=== PATIENT | female | born 1935 | race Caucasian/White ===

== ENCOUNTER 2016-08-31 02:13 | Emergency (ER) | payer MEDICARE, MEDICAID ==
[~2016-08-31 02:13] MED LIST: ASA CHILDREN'S81 MG PO; COLACE-DPS100 MG PO; DULCOLAX-DPS5 MG PO; HYDROCODON-ACE1 EAC2 PO; LEVEMIR100 UNIT/1 SQ; LIPITOR DPS20 MG PO; MIRALAX510 GM PO; NAPROXEN375 MG PO; NEURONTIN800 MG PO; NOVOLIN N100 UNIT/1 SQ; NOVOLIN R,100 UNITS/ SQ; SYNTHROID88 MCG PO; VALIUM-DPS5 MG PO; ZESTORETIC 20/21 TAB PO
--- NOTE | 2016-09-05 07:37 | ER ---
ADMIT: 08/31/2016 RM/LOC: ER [facility] MR#: [id number] [address] [facility] [address] [place], [place] [address] BHAVYA WILLIAM N [address] [place] [address] Emergency Room Report SEX: F AGE: 80 : 1935 DATE: 08/31/2016 TIME: 212 Please refer to my T-sheet for complete H and P. HISTORY OF PRESENT ILLNESS: Briefly, the patient is a 80-year-old, comes in with multiple complaints. Aches all over. Not feeling well. Has not been doing well. She states she has diabetes, neuropathy, and chronic pain. She is on a pain pump. She has been seeing Dr. Hilario and Dr. Payan, just not improving. Was at home, says that she lives over at [facility], where she does not have her dog, she has been lonely and came in by ambulance. PHYSICAL EXAMINATION: VITAL SIGNS: Blood pressure 159/81, pulse 78, respirations 18, temp 96.4, saturating 98%. GENERAL: She has kind of all over the place has multiple complaints, but no acute distress. HEENT: Grossly normal. LUNGS: Clear. HEART: Regular. ABDOMEN: Soft. EXTREMITIES: 2+ edema in the lower extremities. NEUROLOGIC: Alert and oriented, nonfocal. EMERGENCY DEPARTMENT COURSE: EKG was sinus rhythm, left ventricular hypertrophy was noted. Her rate was 71, no changes. CBC normal, chemistries normal except potassium 3.3, glucose 170, troponin negative, UA normal except 2+ ketones. In the emergency department, I gave her 1 mg of Ativan p.o., she drank some water. She was feeling somewhat better and ready for discharge. ASSESSMENT: 1. Multiple complaints. 2. Anxiety. 3. Chronic back pain. 4. Chronic pain issues. PLAN: Ativan 1 mg 0.5 mg t.i.d. p.r.n., I gave her 15. Return if worse. Follow up with [facility]. Continue care, fluids. Taras Lincoln MD/ sergio JOB #: [id number] CC: Taras Lincoln MD, Attending Physician
[2016-10-05] MEDS ORDERED: LYRICA75 MG PO (12:44)
[2016-10-05] MEDS ORDERED: PRILOSEC DPS20 MG PO (12:44)
[2016-10-05] MEDS ORDERED: ZETIA10 MG PO (12:45)
[2016-10-05] MEDS ORDERED: ATIVAN-DPS0.5 MG PO (12:46)
[2016-10-05] MEDS ORDERED: NOVOLOG100 UNIT/2 SQ (12:46)
[2016-10-05] MEDS ORDERED: [UNRECOGNIZED DRUG - OTHER] PO (12:48)
[2016-10-05] MEDS ORDERED: TYLENOL DPS325 MG PO (12:49)
[2016-10-05] MEDS ORDERED: ASPIRIN EC81 MG PO (12:50)
[2016-10-05] MEDS ORDERED: LASIX DPS40 MG PO (12:55)
[2017-01-05] MEDS ORDERED: HYDRODIURIL-DPS50 MG PO (14:15)
[2017-01-05] MEDS ORDERED: ZESTRIL DPS20 MG PO (14:30)
[2017-01-05] MEDS ORDERED: COLACE-DPS100 MG PO (14:31)
[2017-01-05] MEDS ORDERED: NEURONTIN DPS400 MG PO (14:33)
[2017-01-05] MEDS ORDERED: MAALOX DPS30 ML PO (14:34)
[2017-01-05] MEDS ORDERED: GLUTOSE 1537.5 GM PO (14:34)
[2017-01-05] MEDS ORDERED: NITROSTAT0.4 MG SL (14:36)
[2017-01-05] MEDS ORDERED: GLUCAGON HCL1 MG IM (14:36)
[2017-01-05] MEDS ORDERED: DULCOLAX-DPS10 MG PO (14:36)
[2017-01-05] MEDS ORDERED: [UNRECOGNIZED DRUG - OTHER] TP (14:37)
[2017-01-05] MEDS ORDERED: NARCAN4 MG SQ (14:38)
== END 2016-08-31 05:56 | disposition home or self-care (01) ==
LOC: ER 02:13
DX: M54.9 Dorsalgia, unspecified (principal); G89.29 Other chronic pain; F41.9 Anxiety disorder, unspecified; E11.9 Type 2 diabetes mellitus without complications; K21.9 Gastro-esophageal reflux disease without esophagitis

== ENCOUNTER → 2016-09-05 | Outpatient (CLI) | payer MEDICARE, MEDICAID ==
[~2016-09-05] MED LIST changes: +ASPIRIN EC81 MG PO; +ATIVAN-DPS0.5 MG PO; +DULCOLAX-DPS10 MG PO; +GLUCAGON HCL1 MG IM; +GLUTOSE 1537.5 GM PO; +HYDRODIURIL-DPS50 MG PO; +LASIX DPS40 MG PO; +LYRICA75 MG PO; +MAALOX DPS30 ML PO; +NARCAN4 MG SQ; +NEURONTIN DPS400 MG PO; +NITROSTAT0.4 MG SL; +NOVOLOG100 UNIT/2 SQ; +PRILOSEC DPS20 MG PO; +TYLENOL DPS325 MG PO; +ZESTRIL DPS20 MG PO; +ZETIA10 MG PO; +[UNRECOGNIZED DRUG - OTHER] PO; +[UNRECOGNIZED DRUG - OTHER] TP
== END | disposition home or self-care (01) ==
LOC: RAD.S 15:30
DX: R60.0 Localized edema (principal); M79.605 Pain in left leg; M79.604 Pain in right leg; R79.1 Abnormal coagulation profile; M47.816 Spondylosis without myelopathy or radiculopathy, lumbar region; Z98.890 Other specified postprocedural states; I51.7 Cardiomegaly

== ENCOUNTER 2016-10-01 18:54 | Inpatient (IN) | payer MEDICARE, MEDICAID ==
[~2016-10-01] VITALS: Ht 154.9 cm; Wt 90.2 kg
[~2016-10-01 18:54] MED LIST changes: -ASPIRIN EC81 MG PO; -ATIVAN-DPS0.5 MG PO; -DULCOLAX-DPS10 MG PO; -GLUCAGON HCL1 MG IM; -GLUTOSE 1537.5 GM PO; -HYDRODIURIL-DPS50 MG PO; -LASIX DPS40 MG PO; -LYRICA75 MG PO; -MAALOX DPS30 ML PO; -NARCAN4 MG SQ; -NEURONTIN DPS400 MG PO; -NITROSTAT0.4 MG SL; -NOVOLOG100 UNIT/2 SQ; -PRILOSEC DPS20 MG PO; -TYLENOL DPS325 MG PO; -ZESTRIL DPS20 MG PO; -ZETIA10 MG PO; -[UNRECOGNIZED DRUG - OTHER] PO; -[UNRECOGNIZED DRUG - OTHER] TP
--- NOTE | 2016-10-01 22:22 | ER ---
ADMIT: 10/01/2016 RM/LOC: 503 [facility] MR#: [id number] [address] [facility] [place], [place] [address] BHAVYA WILLIAM N [address] [place] [address] Emergency Room Report SEX: F AGE: 80 : 1935 DATE: 10/01/2016 CHIEF COMPLAINT: Insulin overdose. HISTORY OF PRESENT ILLNESS: The patient is a 80-year-old female, well known to this physician and institution, suffers from chronic pain, severe arthritis of the hips status post bilateral total knee arthroplasties, diabetic neuropathy, recent dual chamber pacemaker for bradycardia, and Dilaudid pain pump, thinks she may have overdosed on her insulin tonight, not entirely sure. Since I last saw her, she started duloxetine 30 mg daily for neuropathy. Daughter thinks she may have increased confusion as a result of drug-drug interactions. We did discuss this at length with the pharmacy prior to starting and seemed to be a safe medication. The patient denies any recent falls, fevers, chills, nausea, vomiting, diarrhea, or urinary disturbance. PAST MEDICAL HISTORY: ALLERGIES: NONE. MEDICATIONS: Please see nurse's MAR. 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 OPERATIONS: Bilateral cataracts, laminectomy, cholecystectomy, hysterectomy, dual chamber pacemaker, CABG x2, last heart cath 2006, hemorrhoidectomy, bilateral total knee arthroplasty, T and A. SOCIAL HISTORY: , retired, nonsmoker, nondrinker. Lives in [facility]. FAMILY HISTORY: Positive for premature heart disease in siblings. REVIEW OF SYSTEMS: A 12-point review of systems is negative for all other systems, illnesses, or operations except as outlined above. PHYSICAL EXAMINATION: VITAL SIGNS: Temp 97.1, pulse 108, respirations 12, BP 155/85, SaO2 98% on room air. GENERAL: Nontoxic, non-diaphoretic without jaundice or icterus. HEENT: Normocephalic. No evidence of epistaxis, rhinorrhea, or otorrhea. NECK: Supple without lymphadenopathy or thyromegaly. CHEST: Clear. Breath sounds equal without rales, rhonchi, or wheeze. HEART: Tachycardic, regular without murmur, gallop, or edema. ABDOMEN: Soft, nontender, and nondistended without mass or megaly. Bowel sounds hypoactive. BACK: Erect without deformity. EXTREMITIES: No evidence of Homans sign, synovitis, or dermatitis. NEURO: EOMI, PERRLA. Decreased sensation in lower extremities, unchanged ADMIT: 10/01/2016 RM/LOC: 503 [facility] MR#: [id number] [address] [facility] [address] [place] [phone] BHAVYA WILLIAM N [address] [facility] [address] [place] [address] Emergency Room Report SEX: F AGE: 80 : 1935 from previous. Decreased reflexes in knees and ankles bilaterally, unchanged from prior. MEDICAL DECISION MAKING: The patient's overall demeanor and pain is improved since I last saw her. However, blood sugar is declining here in the emergency department despite re-feeding with peanut butter toast and orange juice. Most recent blood sugar 54 after presenting at 162. Given half amp of D50 X2, KCL 20 mEq po and KCL 20 mEq/500 NS IVPB for potassium of 2.8, NS fluid bolus 1000 ml for lactic of 2.4. EKG shows AV pacemaker rhythm, rate of 91, unchanged from previous. Chest x-ray shows no acute findings. Discussed findings with Dr. Brooks, who agrees to admit. The patient is willing at this time to be placed in [facility]. DIAGNOSES: 1. Hypokalemia. 2. Hypoglycemia related to accidental insulin overdose. 3. Chronic pain syndrome. 4. Diabetic neuropathy. 5. Severe arthritis of the hips. RECOMMENDATION: Admit inpatient telemetry for Dr. Payan. ADMISSION/DISCHARGE CONDITION: Stable. CODE STATUS: The patient is a full code. Александр Albrecht MD/ modl JOB #: [id number] CC: Michael Payan MD, Attending Physician Michael Payan MD, Family Physician Michael Payan MD
--- NOTE | 2016-10-04 09:16 | HP ---
ADMIT: 10/01/2016 RM/LOC: 503 [facility] MR#: [id number] [facility]#: [id number] [address] [facility] [address] [place], [place] [address] BHAVYA WILLIAM N [address] [place] [address] History and Physical SEX: F AGE: 80 : 1935 DATE OF SERVICE: 10/02/2016 CHIEF COMPLAINT: Low blood sugar. HISTORY OF PRESENT ILLNESS: The patient is a 80-year-old, white female, who was brought in by ambulance to the emergency room last night, feeling like her blood sugar was low. She thinks she may have accidentally given too much insulin at home. She has been struggling with pain control issues for her osteoarthritis. She has neuropathy and severe hip arthritis. She is essentially wheelchair bound due to pain issues. She sees Dr. Jose Hilario, and they have been trying some different options for pain control and she currently has a Dilaudid CS ASSOCIATE, but she does not feel like that has been doing much and makes her a little sick to her stomach. She has not been eating very well. Last night, I think she accidentally gave too much of whatever insulin, she is not remembering which one. When she got into the emergency room, her blood sugar was low in the 60s, and they gave her some IV dextrose and she felt a little better after that. They did talk to her about possible placement options and she was willing to consider [facility] facility. She was admitted for further monitoring of her sugars and evaluate her functional status for placement. PAST MEDICAL HISTORY: The patient does have type 2 diabetes that is insulin dependent. She also has hypothyroidism, hyperlipidemia, hypertension, coronary artery disease, chronic neuropathy, and osteoarthritis of both knees, status post knee replacements in both hips. PAST SURGICAL HISTORY: Include a two-vessel coronary artery bypass grafting in 1987, hysterectomy, appendectomy, pacemaker, spinal surgery, and bilateral knee replacements, and cataract surgery. ALLERGIES: BACTRIM. MEDICATIONS: 1. Gabapentin 800 mg b.i.d. 2. Omeprazole 20 mg daily. 3. Aspirin 81 mg daily. 4. Naproxen 375 mg twice a day. 5. Novolin N 35 units with lunch and supper. 6. Novolin R 15 units with lunch and supper. 7. Levemir 35 units at bedtime. 8. Bisacodyl 5 mg two tabs daily as needed. 9. Zetia 10 mg daily. 10.Hydrocodone 7.5/325, one every 6 hours as needed for pain. 11.Synthroid 88 mcg daily. 12.Lisinopril/hydrochlorothiazide 20/25, one tab daily. 13.Atorvastatin 20 mg daily. 14.Furosemide 40 mg daily. 15.Lorazepam 0.5 mg t.i.d. p.r.n. anxiety. ADMIT: 10/01/2016 RM/LOC: 503 [facility] MR#: [id number] [address] [address] [facility] [address] [place] [address] History and Physical SEX: F AGE: 80 : 1935 SOCIAL HISTORY: The patient is disabled due to back pain. She is essentially wheelchair bound, but living independently up to now. She has a lot of family that check on her. No tobacco or alcohol use. FAMILY HISTORY: Mother of cancer. Brother had myocardial infarction at the age of 47. Sister as an . REVIEW OF SYSTEMS: CONSTITUTIONAL: She just feels weak and tired all the time due to her medications. No fevers or chills. HEENT: No headaches or vision changes. CARDIAC: No chest pain or palpitations. RESPIRATORY: Denies shortness of breath or cough. GI: She has some nausea frequently and a poor appetite. Some mild constipation issues. : She has been urinating normally with no dysuria. MUSCULOSKELETAL: As above. Severe back, hip, in leg pains. Neuro: She has a neuropathy presumed due to her back issues. PHYSICAL EXAMINATION: GENERAL: The patient is alert and in no distress. VITAL SIGNS: She is afebrile. Blood pressure 138/71, pulse 76, respirations 14, sats 99% on room air. HEENT: Head is atraumatic and normocephalic. Sclerae are clear. Pupils are round and reactive. Oropharynx looks moist. NECK: Supple with no lymphadenopathy. HEART: Regular without murmurs. LUNGS: Sound clear to auscultation bilaterally. ABDOMEN: Soft, nondistended, nontender with good bowel sounds. EXTREMITIES: She has trace edema. She has 2+ dorsalis pedis pulses. Postop changes in the knees bilaterally from her knee replacements and severe pain with any movement of the hips, and tenderness in the low back. No significant skin changes. LABORATORY DATA: Last night her potassium was low at 2.8. Creatinine is normal. Blood sugar through the night on the floor started at 54, and then went to 51, 74, 45, and now up to 135 this morning that is on some IV D5 with some intermittent D50 boluses. Chest x-ray, urine, and EKG are unchanged from previous, just showing a paced EKG. ASSESSMENT: 1. Hypoglycemia secondary to accidental insulin overdose. ADMIT: 10/01/2016 RM/LOC: 503 [facility] MR#: [id number] [facility] [address] [place] [phone] BHAVYA WILLIAM N [address] [place] [address] History and Physical SEX: F AGE: 80 : 1935 2. Diabetes mellitus type 2 with complications of diabetic retinopathy and neuropathy. 3. Severe osteoarthritis of bilateral hips. 4. Chronic pain syndrome. 5. Chronic narcotic use. 6. 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 PLAN: We will continue to monitor sugars. She is on some IV D5 until her insulin wears off. We will back off on that once her sugars rebound, and can start her back on a lower dose of insulin. We will look into placement options. We will have PT and OT see her and hopefully will discharge to skilled. Mattie Brooks MD/ modl JOB #: [id number] CC: Michael Payan MD, Attending Physician Michael Payan MD, Family Physician
[2016-10-05] MEDS ORDERED: PRILOSEC DPS20 MG PO (12:44)
[2016-10-05] MEDS ORDERED: LYRICA75 MG PO (12:44)
[2016-10-05] MEDS ORDERED: ZETIA10 MG PO (12:45)
[2016-10-05] MEDS ORDERED: ATIVAN-DPS0.5 MG PO (12:46)
[2016-10-05] MEDS ORDERED: NOVOLOG100 UNIT/2 SQ (12:46)
[2016-10-05] MEDS ORDERED: [UNRECOGNIZED DRUG - OTHER] PO (12:48)
[2016-10-05] MEDS ORDERED: TYLENOL DPS325 MG PO (12:49)
[2016-10-05] MEDS ORDERED: ASPIRIN EC81 MG PO (12:50)
[2016-10-05] MEDS ORDERED: LASIX DPS40 MG PO (12:55)
--- NOTE | 2016-11-19 07:44 | DS ---
ADMIT: 10/01/2016 RM/LOC: 503 [facility] MR#: [id number] [address] [place], [place] [address] BHAVYA WILLIAM [place], [place] [address] Discharge Summary SEX: F AGE: 80 : 1935 ADMISSION DATE: 10/01/2016 DISCHARGE DATE: 10/04/2016 FINAL DIAGNOSES: 1. Hypoglycemia secondary to accidental insulin overdose. 2. Diabetes mellitus type 2. 3. Severe DJD (degenerative joint disease). 4. Chronic pain syndrome. 5. Chronic narcotic use. 6. Toxic encephalopathy. REASON FOR ADMISSION: Bhavya is a 80-year-old, white female, who is normally cared for by Dr. Michael Payan and admitted by Dr. Brooks after she called the squad because she accidentally had overdosed herself with insulin. Therefore, because she was hypoglycemic, she was admitted for further workup and stabilization. HOSPITAL COURSE: She was admitted on 10/01/[address] Brooks. Inpatient status was started on D5 half-normal saline with 20 of KCl with close Accu- Cheks q.4 hours. Her sugar did drop to 45 later that evening, and she was given an amp of D50 and then at 1 o'clock it was 57, and she was given another amp of D50. DNR/DNI status was continued per her request. 10/02 she was given Zofran and morphine. We did consult Dr. Hilario for pain management help as she did follow with him as an outpatient. Enoxaparin was used for DVT prophylaxis. PT followed. She was agreeable to short-term placement. Dr. Hilario recommended stopping the gabapentin and trying Lyrica. On 10/03 we changed her IV fluids to normal saline and was started on half the dose of her insulin and regular as well as Levemir. Changed her Accu-Cheks to q.a.c. and every bedtime. On 10/04 she was having a lot of neuropathic pain but no new other complaints. Her blood sugars were stable, and she was felt stable for transfer to the residential facility. DISCHARGE INSTRUCTIONS: 1. Aspirin 81 mg daily. 2. Lyrica 75 mg t.i.d. 3. Omeprazole 20 mg daily. 4. Synthroid 0.088 mg daily. 5. Zetia 10 mg daily. 6. Sliding scale insulin. 7. Ativan 0.5 mg t.i.d. p.r.n. 8. Dulcolax tablet 10 mg Q day p.r.n. 9. Lortab 7.5 q.6 hours p.r.n. ADMIT: 10/01/2016 RM/LOC: 503 [facility] MR#: [id number] [address] [address] [facility] [place] [address] Discharge Summary SEX: F AGE: 80 : 1935 10.Naprosyn 375 mg b.i.d. p.r.n. 11.Tylenol 325 mg 2 tabs q.4 hours p.r.n. 12.Novolin-N 35 units with lunch and supper and. 13.Novolin-R 15 units with lunch and supper. 14.Levemir 35 units at bedtime. 15.Lisinopril/HCTZ 20/12.5 daily. 16.Atorvastatin 20 mg at bedtime. 17.Lasix 40 mg daily. PT and OT to follow. Accu-Cheks b.i.d. Fax blood sugars to Dr. Payan in 7-10 days. Continue DNR/DNI status. Follow up with Dr. Payan in 7-10 days, sooner if needed. Total transfer and discharge time was greater than 30 minutes. Esdras Higgins MD/ malena JOB #: [id number] CC: Michael Payan MD, Attending Physician Michael Payan MD, Family Physician
[2017-01-05] MEDS ORDERED: HYDRODIURIL-DPS50 MG PO (14:15)
[2017-01-05] MEDS ORDERED: ZESTRIL DPS20 MG PO (14:30)
[2017-01-05] MEDS ORDERED: COLACE-DPS100 MG PO (14:31)
[2017-01-05] MEDS ORDERED: NEURONTIN DPS400 MG PO (14:33)
[2017-01-05] MEDS ORDERED: GLUTOSE 1537.5 GM PO (14:34)
[2017-01-05] MEDS ORDERED: MAALOX DPS30 ML PO (14:34)
[2017-01-05] MEDS ORDERED: NITROSTAT0.4 MG SL (14:36)
[2017-01-05] MEDS ORDERED: GLUCAGON HCL1 MG IM (14:36)
[2017-01-05] MEDS ORDERED: DULCOLAX-DPS10 MG PO (14:36)
[2017-01-05] MEDS ORDERED: [UNRECOGNIZED DRUG - OTHER] TP (14:37)
[2017-01-05] MEDS ORDERED: NARCAN4 MG SQ (14:38)
== END 2016-10-04 10:52 | DRG 917 ==
LOC: ER 18:54 → 5MS 20:18
PROVIDERS: ADMIT Family Medicine
DX: T38.3X1A Poisoning by insulin and oral hypoglycemic [antidiabetic] drugs, accidental (unintentional), initial encounter (principal); G92 Toxic encephalopathy; E11.40 Type 2 diabetes mellitus with diabetic neuropathy, unspecified; E11.649 Type 2 diabetes mellitus with hypoglycemia without coma; M16.0 Bilateral primary osteoarthritis of hip; G89.4 Chronic pain syndrome; M54.9 Dorsalgia, unspecified; E03.9 Hypothyroidism, unspecified; E87.6 Hypokalemia; E11.319 Type 2 diabetes mellitus with unspecified diabetic retinopathy without macular edema; I25.10 Atherosclerotic heart disease of native coronary artery without angina pectoris; I10 Essential (primary) hypertension; E78.5 Hyperlipidemia, unspecified; Z82.49 Family history of ischemic heart disease and other diseases of the circulatory system; Z95.1 Presence of aortocoronary bypass graft; Z95.0 Presence of cardiac pacemaker; Z96.89 Presence of other specified functional implants; Z96.653 Presence of artificial knee joint, bilateral; Z99.3 Dependence on wheelchair; Z79.4 Long term (current) use of insulin; Z79.82 Long term (current) use of aspirin; Z66 Do not resuscitate; Z68.37 Body mass index [BMI] 37.0-37.9, adult

== ENCOUNTER 2016-11-03 10:05 | Emergency (ER) | payer MEDICARE, MEDICAID ==
[~2016-11-03 10:05] MED LIST changes: +ASPIRIN EC81 MG PO; +ATIVAN-DPS0.5 MG PO; +LASIX DPS40 MG PO; +LYRICA75 MG PO; +NOVOLOG100 UNIT/2 SQ; +PRILOSEC DPS20 MG PO; +TYLENOL DPS325 MG PO; +ZETIA10 MG PO; +[UNRECOGNIZED DRUG - OTHER] PO
--- NOTE | 2016-11-04 20:34 | ER ---
ADMIT: 11/03/2016 RM/LOC: ER [facility] MR#: [id number] [address] [facility] [address] [place], [place] [address] [place]AVYA [place], [place] [address] Emergency Room Report SEX: F AGE: 81 : 1935 DATE: 11/03/2016 Ms. Henry is a 81-year-old female, who came in with her [id number] complaining of burning with urination for the last 7 days. She says she has been taking Levaquin antibiotic and she now has swelling on her legs, body aches, knee pain, nausea, and vomiting. She says that she went home after [employer] is coming to help her, but most nights she spends with a lot of pain in her hips. REVIEW OF SYSTEMS: Otherwise negative. PAST MEDICAL HISTORY: Cardiac disease, diabetes type 2, hypertension, UTI, neuropathy. Her old records have been reviewed. She has a pacer, she has a Dilaudid pain pump. ALLERGIES: ALLERGIC TO BACTRIM. PHYSICAL EXAMINATION: GENERAL: Very anxious. VITAL SIGNS: Blood pressure 143/44, heart rate is 65, respirations 11, temp is 97.7, and O2 sats 99%. HEENT: Normal inspection. NECK: Supple. RESPIRATIONS: No distress. CVS: Regular in rate and rhythm. ABDOMEN: Soft. She points to the epigastric abdomen all around as a band from the left to the right side and thinks that is related to her kidneys. BACK: Normal inspection. SKIN: Petechial rash, lower legs with edema 2+. NEUROLOGIC: Oriented x4. Mood and affect are depressed and flat affect. The patient states her blood pressure is always low, she was told by Dr. Payan to take her lisinopril every 3 days and now her blood pressure is 138/48. She also mentioned when she came in that had contacted Dr. Payan's office and was told to come to the ER that we would call doctor Ora and get orders for admission. When I talked to Dr. Payan about it to give him the report of the labs, he denied that comment. LABORATORY DATA: We did go ahead and get some basic labs. Her white count is 4.8, hematocrit is 35.5. Her potassium is 3.1 with a BUN of 27, glucose 144, BNP 237, AST 44, and GFR 54. Urine does not have any infection at this point, ketones 1+. CLINICAL IMPRESSION: Ketonuria; mild dehydration; nausea; abdominal pain, upper quadrant, resolved; urinary tract infection. Dr. Payan was contacted, discussed the patient's issue. She does not want to go back to [facility]. States she just wanted to stay couple of days to get some IV fluids and feels much better. Her renal social worker were contacted to talk to the patient and kind of sort things out in order to see where she is going to end up after she is released from the hospital. I tried to contact ADMIT: 11/03/2016 RM/LOC: ER [facility] MR#: [id number] [address] [place] [phone] [place] [address] Emergency Room Report SEX: F AGE: 81 : 1935 [address]. Guerrero's office, but I was unable to talk to anyone there. Ms. Corey admits to visiting pain traffic control flagger, Dr. Hilario and that he is adjusting her medications, switching her from Dilaudid to fentanyl. So at this point, I do not know who her pain management provider is. She refuses to go into a retirement and she will not be admitted as there are no qualifications for admission at this point. We will go ahead and give her some fluids as per Dr. Michael Payan's request and she is to continue her medications according to what they are prescribed for and the dosages and frequency. Apparently, she does adjust her insulin medications and take some when she thinks she needs some. So, she will be dismissed home. The only medication we gave her in the ER was Zofran and normal saline and a renal social worker consultation for possible placement. DONALDO Mcneill / Harish High MD / ginol JOB #: [id number] CC: Harish High MD, Attending Physician UNKNOWN, Family Physician
[2017-01-05] MEDS ORDERED: HYDRODIURIL-DPS50 MG PO (14:15)
[2017-01-05] MEDS ORDERED: ZESTRIL DPS20 MG PO (14:30)
[2017-01-05] MEDS ORDERED: COLACE-DPS100 MG PO (14:31)
[2017-01-05] MEDS ORDERED: NEURONTIN DPS400 MG PO (14:33)
[2017-01-05] MEDS ORDERED: GLUTOSE 1537.5 GM PO (14:34)
[2017-01-05] MEDS ORDERED: MAALOX DPS30 ML PO (14:34)
[2017-01-05] MEDS ORDERED: NITROSTAT0.4 MG SL (14:36)
[2017-01-05] MEDS ORDERED: GLUCAGON HCL1 MG IM (14:36)
[2017-01-05] MEDS ORDERED: DULCOLAX-DPS10 MG PO (14:36)
[2017-01-05] MEDS ORDERED: [UNRECOGNIZED DRUG - OTHER] TP (14:37)
[2017-01-05] MEDS ORDERED: NARCAN4 MG SQ (14:38)
== END 2016-11-03 13:40 | disposition home or self-care (01) ==
LOC: ER 10:05
PROC: 0T9B70Z Drainage of Bladder with Drainage Device, Via Natural or Artificial Opening (ICD-10-PCS; principal; 2016-11-03)
DX: R82.4 Acetonuria (principal); E86.0 Dehydration; R11.0 Nausea; R10.10 Upper abdominal pain, unspecified; Z79.82 Long term (current) use of aspirin; Z79.899 Other long term (current) drug therapy; I10 Essential (primary) hypertension; E11.9 Type 2 diabetes mellitus without complications; Z95.0 Presence of cardiac pacemaker; Z88.1 Allergy status to other antibiotic agents